=== PATIENT | male | born 1970 | race Caucasian/White ===

== ENCOUNTER 2020-09-27 14:02 | Outpatient (CLI) | payer OTHER, SELFPAY | END 2020-09-27 14:03 | disposition home or self-care (01) | LOC: ANHAUDIO 14:04 | PROVIDERS: PCP Internal Medicine Infectious Disease; Visit Provider Internal Medicine Infectious Disease | DX: H90.3 Sensorineural hearing loss, bilateral (principal) | CPT/HCPCS: 92557; 92567 ==

== ENCOUNTER → 2022-11-01 13:32 | Outpatient (CLI) | payer OTHER, SELFPAY ==
--- NOTE | ~2022-11-01 | MR_ITS ---
EXAMINATION: MR lumbar spine wo con DATE: 11/01/2022 14:21 INDICATION: Low back pain radiating down the left leg. Lumbar radiculopathy. TECHNIQUE: Magnetic resonance imaging (MRI) of the lumbar spine was performed without intravenous con trast. Sequences included sagittal T2-weighted FSE, sagittal T2-weighted FS FSE, sagittal T1-weighted FSE, and axial T2-weighted FSE. COMPARISON: Lumbar spine MRI 05/25/2018 FINDINGS: Bone alignment is normal. Vertebral body heights are normal. Intervertebral disc heights ar e normal. The distal spinal cord signal intensity is normal. The conus medullaris is at L1-L2. The fo llowing disc levels are specifically discussed: L1-L2: The disc does not extend beyond the endplate margin. There is mild bilateral facet joint osteo arthritis. There is no neural foraminal stenosis. There is no central canal stenosis. L2-L3: The disc is bulging and has an annular fissure. There is moderate bilateral facet joint osteoa rthritis. There is mild bilateral neural foraminal stenosis. There is mild central canal stenosis. L3-L4: The disc does not extend beyond the endplate margin. There is moderate bilateral facet joint o steoarthritis. There is no neural foraminal stenosis. There is no central canal stenosis. L4-L5: The disc is bulging and has an annular fissure. There is mild bilateral facet joint osteoarthr itis. There is mild bilateral neural foraminal stenosis. There is mild central canal stenosis. L5-S1: The disc is bulging and has an annular fissure. There is mild bilateral facet joint osteoarthr itis. There is no neural foraminal stenosis. There is mild central canal stenosis. IMPRESSION: 1. Mild lumbar spondylosis, stable from 05/25/2018. Reviewed, dictated and finalized at location A.
== END ==
PROVIDERS: PCP Internal Medicine Infectious Disease; Visit Provider Chiropractor
DX: R20.0 Anesthesia of skin (principal); M47.816 Spondylosis without myelopathy or radiculopathy, lumbar region
CPT/HCPCS: 72148

== ENCOUNTER 2022-12-18 01:54 | Day surgery (SDC) | payer OTHER, SELFPAY ==
[2022-12-07 09:43] VITALS: BMI 25.7
--- NOTE | 2022-12-07 09:47 | PC.NURSE ---
Report to the Outpatient Waiting Room, entrance under the green pavilion located off [facility], at time 0800 on date 12/18/22. Planned Procedure Time: 1000. Time changes happen often and if your time is changed the preop area will call you the afternoon before. - You and your visitor will be asked to self-screen and do not enter if you have any COVID symptoms. - A mask is optional within the hospital at this time. Patients may have clear liquids (water, carbonated beverages, clear teas, apple juice) until 3 hours prior to surgery with a maximum of 20 ounces. - No food from midnight until time of surgery Take the following medications with a SIP of water the morning of surgery: DULOXETINE DO NOT STOP ANY OF YOUR OTHER PRESCRIPTION MEDICATIONS PRIOR TO SURGERY ?EXCEPT THE FOLLOWING Medications to discontinue per physician: N/A Date to take last dose: N/A Please no make-up, nail zimbabwean, hairspray, perfume, deodorant, or body powder the day of surgery. No jewelry (including any body piercings) or valuables the day of surgery, leave them at home. Please take a shower or bath the night before, or the morning of, surgery with an antibacterial soap. Wear comfortable, loose fitting clothing. - Jewelry must be removed prior to entering the operating room. Rings and piercings that are not removed may be cut off. - The hospital will not accept responsibility for valuables. - Please leave all valuables, including medications, at home the day of surgery. If you are going home after surgery, a licensed cab driver must drive you home. - NO public transportation without another adult if you receive anesthesia. - We recommend that an adult stay with you for 24 hours following discharge. - We also recommend that you do not drive, make important decision, drink alcoholic beverages, or take any drugs that were not prescribed by your health care provider for at least 24 hours after your discharge time. Follow any additional instructions given to you from your surgeon. If you or anyone in your household have experienced Covid symptoms in the past week, please notify your surgeon or the nurse liaison at the phone number below for possible testing. Telephone instructions given to PT - SHAHRAM SAHNI and asked if any additional questions and then verbalized understanding. Patient advised to call surgeon office or pre surgery nurse liaison [phone] if any additional questions.
--- NOTE | 2022-12-15 18:45 | WPDANESEPP ---
Anes - Eval Pre Procedure Procedure: Operation Date: 12/18/22 09:30 Proposed Procedures p Bilateral Plantar Fasciotomy with Nerve Ablation - Kings Calderon MD Date/Time: 12/15/22 18:45 Pre Op Diagnosis: bilateral plantar fasciitis/heel pain Patient Data Age: 52 Gender: M Height: 1.88 m Weight: 90.75 kg Allergies Allergy/AdvReac Type Severity Reaction Status Date / Time No Known Allergies Allergy Verified 12/07/22 09:42 Home Medications Medication Instructions Recorded Confirmed Type duloxetine 60 mg capsule,delayed 90 mg PO DAILY 12/07/22 12/07/22 History release Patient hx anesthesia problems: other (slow to wake up) Family hx anesthesia problems: none Results Review: All pre-operative results and documents have been reviewed as part of the pre-operative evaluation. [facility] Past Medical History Medical History (Updated 12/15/22 @ 18:45 by Katie Esparza CRNA) Anxiety Asthma Back pain Bilateral plantar fasciitis Chronic headaches IBS (irritable bowel syndrome) Neuritis of left foot Neuritis of right foot Plantar fasciitis of left foot Plantar fasciitis of right foot Tarsal tunnel syndrome of both lower extremities Tarsal tunnel syndrome of left side Family History Family History Mother Family history of cardiovascular disease Father Family history of malignant neoplasm Malignant neoplasm of prostate Other Hypertension Social History Social History Smoking packs per day: 0.5 Smoking cigarettes per day: 10.0 Years smoked: 15 Smoking pack-years: 7.50 Smoking status: Former smoker Tobacco type: cigarettes Smoking end date: 05/28/00 Alcohol intake: never Substance use: never Substance use type: does not use Living arrangements: with family Occupation/Education: occupation Gender identity (if verbalized by the patient): Male Spiritual care concerns: No Exam Day of Procedure 12/15/22 18:45
[2022-12-18] VITALS (8 sets, daily range): BP systolic 110–134; BP diastolic 68–88; PULSE 73–90; RESP 10–18; TEMP 36.3–36.5; O2SAT 100
--- NOTE | 2022-12-18 07:32 | WPDHPUPDATE1 ---
History and Physical Update Update Date/Time: 12/18/22 07:32 History and Physical has been reviewed, including an updated exam of the patient. There are NO changes in the patient's condition. Risks, benefits, and alternatives have been discussed and questions answered. Patient agrees to proceed with procedure.
[2022-12-18] MEDS: ACETAMINOPHEN 500 MG TABLET 1000 MG PO (08:00)
[2022-12-18] MEDS: LACTATED RINGERS 1,000 ML 30 ML IV CONT (08:10)
--- NOTE | 2022-12-18 08:21 | P.PNAN_ITS ---
Anes - Eval Final PreProcedure Day of Procedure 12/18/22 08:21 Patient weight: normal Heart: regular rate and rhythm Lungs: clear to auscultation Airway: Mallampati scale class II Neurological: alert and oriented Last oral intake: >/= 8 hours ASA classification: II Emergent: no Anesthetic plan: proceed Anesthesia type and monitoring: general LMA and standard monitoring Results Review: All pre-operative results and documents have been reviewed as part of the pre- operative evaluation. Informed Consent: The patient's anesthetic plan and its attendant risks and benefits were discussed with the patient/family/POA. Questions were solicited and answers provided to the satisfaction of the patient/family/POA.
[2022-12-18] MEDS: KETOROLAC 15 MG/ML VIAL (*BKC) IV PUSH (09:15)
[2022-12-18] MEDS: ceFAZolin 2 GM/D5W 50 ML 2 GM/50 ML BAG IVPB (09:31)
[2022-12-18] MEDS: BUPIVACAINE/EPINEPHRINE 0.5% 10 ML VIAL 20 ML INFILTRATE (09:54)
--- NOTE | 2022-12-18 10:11 | W.PM.PROC2 ---
Procedure Note - Detailed Date of Procedure 12/18/22 Pre-op Diagnosis bilateral plantar fasciitis/heel pain Post-op Diagnosis Same Procedure Performed Bilateral plantar fasciotomy Surgeon Kings Calderon MD Anesthesia General Indications 52-year-old with recalcitrant bilateral plantar fasciitis as well as neuritis of the lateral branch of the plantar nerve. Has had multiple injections, therapy and shoe modifications. Presents now for operative treatment. Description of Procedure Patient identified in the preoperative holding. Informed consent given. Operative extremity marked. Patient received intravenous antibiotics. Patient brought to the operating room where underwent general anesthetic by anesthesia team. Positioned supine on operating room table. Time-out performed confirming the patient, site of the surgery and the plan. Both left and right foot prepped and draped usual sterile surgical fashion using a ChloraPrep skin solution. 0.5% Marcaine plain was used as local anesthetic for both the right and left heel. Patient marked the area of maximum intensity of pain on both the right and left heel. Using this as a centering point we made an approximately 4 centimeter sq around this area. This was done both the right and left foot. Addressing the left foot 1st we then used a 0.062 in K-wire to incise the skin in multiple positions for a total of 20 points. The radiofrequency probe was then inserted into each point and a radiofrequency shock was delivered to the area. At each area a release and division of the plantar fascia was performed. Steri-Strips were then applied to the foot. The right foot was then addressed in similar fashion. 0.062 in K-wire used to incise the skin in multiple positions for a total of 20 points. The radiofrequency probe was then inserted into each point and a radiofrequency shock was delivered to the area. Care was taken to perform release at the lateral branch of the plantar nerve both left and right heel. At each area a release and division of the plantar fascia was performed. Steri-Strips were then applied to the foot. Sterile dressing applied. The patient was then woken from anesthesia, extubated and taken to the recovery room in stable condition. All sponge, needle, instrument counts were correct at the end of the case. Estimated Blood Loss 2 Tourniquet Time 15 Drains No Packing No Pathology None sent Complications None Condition Stable Disposition PACU [facility] Billing Surgery - Charge Forward: Surgery Billing ([id number], bilat)
== END 2022-12-18 11:57 | disposition home or self-care (01) ==
PROVIDERS: PCP Internal Medicine Infectious Disease; Visit Provider Orthopaedic Surgery
PROC: (CPT 28899; principal; 2022-12-18 09:30)
DX: M72.2 Plantar fascial fibromatosis (principal); G58.8 Other specified mononeuropathies; F41.9 Anxiety disorder, unspecified; Z87.891 Personal history of nicotine dependence
CPT/HCPCS: 28899; A9270; C1713; J0690; J1100; J1885; J2250; J2405; J2704; J3010; J7120

== ENCOUNTER 2024-01-07 12:31 | Emergency (ER) | payer OTHER, SELFPAY ==
--- NOTE | ~2024-01-07 | CT_ITS ---
CT lumbar spine wo con Ordering provider: Mushtaq Sprague MD History: 53 years Male with . acute on chronic back pain,S/P LIFTING INJURY . Comparison: None. Technique: CT lumbar spine without contrast. Automated exposure control and iterative reconstruction technique were employed. The dose-length product was 675.81 mGy-cm. FINDINGS: VERTEBRAE: Normal height and alignment. No subluxation or visible acute fracture. DISC SPACES: Well maintained. T12-L1: No stenosis. L1-L2: No stenosis. L2-L3: No stenosis. Mild diffuse disc bulge. L3-L4: No stenosis. Mild diffuse disc bulge. L4-L5: No stenosis. Mild diffuse disc bulge. Left paracentral disc protrusion with nerve root compression. The left lateral recess. L5-S1: No stenosis. PARASPINOUS SOFT TISSUES: Normal aorta. Left sacroiliitis. IMPRESSION: Disc protrusion at the level of L5-S1 with nerve root compression in the left lateral recess. Clinica l correlation and if warranted MRI is advised. No acute osseous abnormality. Reviewed, dictated and finalized at location A. IMPRESSION: Disc protrusion at the level of L5-S1 with nerve root compression in the left l ateral recess. Clinical correlation and if warranted MRI is advised. No acute osseous abnormality.
[2024-01-07 12:32] VITALS: BP 124/85; PULSE 82; RESP 18; TEMP 36.3; O2SAT 100
--- NOTE | 2024-01-07 12:33 | ED.GENADULT ---
HPI - General Adult General Chief complaint: Back Pain/Injury Stated complaint: back pain Time Seen by Provider: 01/07/24 12:33 Source: patient Mode of arrival: ambulatory Limitations: no limitations History of Present Illness HPI narrative: 53-year-old white male with history of chronic back pain notice it was bothering him a week ago but got better. This morning woke up without any pain. But then he started lifting some cement bags he started having bilateral low back pain midback pain and so came to the emergency department he did take it for pain today. patient rates his pain as 10/10 when he moves an 8/10 at rest. He said the cement bags earlier lifting were 60 lb. Denies any weakness numbness paresthesias radiation of his pain. Denies any urinary or fecal incontinence or problems voiding or stooling. Pain is worse when he moves better when he lays still. He has had problems since he was 15 years old usually gets his back pain 0 to twice per year. Denies any dizziness lightheadedness cough fever sore throat runny nose nausea vomiting diarrhea rash or itching bleeding or bruising or any other complaints. Related Data Home Medications Medication Instructions Recorded Confirmed duloxetine 60 mg capsule,delayed 90 mg PO DAILY 12/07/22 01/07/24 release Allergies Allergy/AdvReac Type Severity Reaction Status Date / Time No Known Allergies Allergy Verified 01/07/24 12:35 Review of Systems Review of Systems: All systems reviewed & are unremarkable except as noted in HPI and below PMFSH Past Medical History Medical History Anxiety Asthma Back pain Bilateral plantar fasciitis Chronic headaches IBS (irritable bowel syndrome) Lateral epicondylitis of elbow Left elbow pain Neuritis of left foot Neuritis of right foot Plantar fasciitis of left foot Plantar fasciitis of right foot Tarsal tunnel syndrome of both lower extremities Tarsal tunnel syndrome of left side Family History Family History Mother Family history of cardiovascular disease Father Family history of malignant neoplasm Malignant neoplasm of prostate Other Hypertension Social History Social History Smoking packs per day: 0.5 Smoking cigarettes per day: 10.0 Years smoked: 15 Smoking pack-years: 7.50 Smoking status: Former smoker Tobacco type: cigarettes Smoking end date: 05/28/00 Alcohol intake: never Substance use: never Substance use type: does not use Living arrangements: with family Occupation/Education: occupation Gender identity (if verbalized by the patient): Male Spiritual care concerns: No Exam Narrative: White male patient with Moderate apparent distress with movement.? Head normocephalic, atraumatic.? Eyes conjunctiva pink sclera nonicteric.? Extraocular movements are intact.? Ears externally normal.? Oropharynx is clear with moist mucous membranes without exudates.? Neck is supple nontender no lymphadenopathy.? Back paralumbar tenderness. Negative straight leg raise. Deep tendon reflex +2 for lower extremities. Pain with moving on the cart.? Lungs are clear.? Heart is regular rate and rhythm without murmurs gallops or rubs.? Chest wall nontender. Abdomen is soft and nontender no hepatosplenomegaly or masses no CVA tenderness no abdominal bruits.? Extremities no cyanosis clubbing or edema.? Skin is warm and dry without rashes or lesions.? Neurological patient is alert and oriented x4.? Motor and sensory grossly intact. Rectal tone and sensation normal.? Gait is normal. Course Vital Signs Vital signs: Vital Signs Temperature 36.3 C L 01/07/24 12:32 Pulse Rate 82 01/07/24 12:32 Respiratory Rate 18 01/07/24 12:32 Blood Pressure 124/85 01/07/24 12:32 Pulse Oximetry 100 01/07/24 12:32 Oxygen Delivery
[2024-01-07] MEDS: KETOROLAC 30 MG/ML VIAL (*BKC) IM (12:52)
[2024-01-07 13:30] VITALS: BP 112/77; PULSE 70; RESP 16; O2SAT 100
[2024-01-07] MEDS: HYDROmorphone HCL INJ (*CRX) 2 MG/ML VIAL 1 MG IM (13:34)
[2024-01-07 14:30] VITALS: BP 116/74; PULSE 65; RESP 16; O2SAT 97
--- NOTE | 2024-01-07 14:47 | PC.NURSE ---
Patient ambulatory from ED room 1 into hallway. Patient able to ambulate and stand tall at this time. Gait steady.
[2024-01-07 15:00] VITALS: BP 115/72; PULSE 72; RESP 16; O2SAT 99
== END 2024-01-07 15:00 | disposition home or self-care (01) ==
PROVIDERS: Emergency Provider Emergency Medicine
DX: M54.50 Low back pain, unspecified (principal); Z79.899 Other long term (current) drug therapy; Z87.891 Personal history of nicotine dependence
CPT/HCPCS: 72131; 96372; 99284; J1170; J1885

== ENCOUNTER 2024-08-25 00:57 | Day surgery (SDC) | payer OTHER, SELFPAY ==
[2024-08-12 15:56] VITALS: BMI 26.2
--- OUTSIDE RECORDS SUMMARY | 2024-08-25 01:00 | XMS_ITS | Referral Summary ---
Author Organization [facility] Address [address] [place] [address] Care Team Providers Care Fire Engine Operator Name Role Phone Rikki Christina MD Primary Care Provider +1- [phone] Encounters Date Type Department Care Team Description 08/11/2024 Telephone [facility] [address] [place] [address] Rikki Christina MD Hemorrhoids from Last 3 Months Allergies No known active allergies Medications traZODone (DESYREL) 50 mg tabletIndication s:Insomnia, unspecified type Take 1 tablet (50 mg total) by mouth nightly as needed for sleep for sleep 30 tablet [address] (CYMBALTA) 30 mg capsule Take 1 capsule (30 mg total) by mouth daily 90 capsule 1 4 Active naproxen (NAPROSYN) 500 mg tablet Take 1 tablet (500 mg total) by mouth 2 (two) times a day with meals 40 tablet [address] (CYMBALTA) 60 mg capsuleIndicatio ns:Mild episode of recurrent major depressive disorder Take 1 capsule by mouth once daily 30 capsule 2 5 Active menthol-zinc oxide 0.44-20.6 % ointment Apply topically 2 (two) times a day 71 g 5 Active Active Problems Problem Noted Date Diagnosed Date Cyst of bone of right foot 05/14/2024 Assessment & Plan (05/14/2024 9:52 AM DOUGH CUTTER): WILL ARRANGE US OF THE RIGHT FOOT TO BETTER ASSESS Episodic tension-type headache, not intractable 05/14/2024 Assessment & Plan (05/14/2024 9:54 AM DOUGH CUTTER): CHRONIC AND STABLE EYE EXAM ENCOURAGED TRIAL OF NAPROXEN 500 MG PO TIMES ONE Chronic bilateral low back pain without sciatica 01/10/2024 Assessment & Plan (01/14/2024 9:47 PM CDT): Chronic, uncontrolled. Muscular and spinal tenderness on exam with decreased range of motion as noted on exam. Lumbar CT from ER last week was similar when compared with MRI of lumbar spine from 2020. Pain is likely inflammatory in nature. Given IM injection of 80 mg Kenalog in office today, we will prescribe prednisone burst as directed starting tomorrow. We will refill Flexeril as needed. Continue bracing and heat or ice as tolerated. Offered physical therapy consult, patient refused at this time. Advised to call if pain is not improved by next week. Addendum: Patient called 3 days later to state pain had now moved down closer to tailbone and felt d ifferent f rom previous. Discussed with Dr. Christina, we will refer to pain management for further assessment. DDD (degenerative disc disease), lumbar 01/10/20 24 Assessment & Plan (01/14/2024 9:48 PM CDT): Chronic, uncontrolled. See plan for chronic low back pain above Primary insomnia 10/05/2023 Assessment & Plan (04/12/2024 12:17 PM DOUGH CUTTER): DOING WELL ON LY USES PRN TRAZODONE Recurrent major depression 03/27/2022 Assessment & Plan (04/12/2024 12:18 PM DOUGH CUTTER): CHRONIC AND STABLE ON 90 MG OF CYMBALTA Assessment & Plan (10/05/2023 4:02 PM CDT): PT IS DOING WELL DOING CYMBALTA ON 90 MG PO QDAY Mixed hyperlipidemia 03/27/2022 Assessment & Plan (04/12/2024 12:18 PM DOUGH CUTTER): GOAL LDL IS UNDER 100 THERE HAS BEEN AN IMPROVEMENT SINCE THE LAST VISIT Assessment & Plan (10/05/2023 4:02 PM CDT): POOLED COHORT SCORE IS UNDER 7.5 PERCENT CONTINUE DIET AND EXERCISE Immunizations Immunization Administration Dates Next Due Influenza, Unspecified 05/13/2024(Deferr ed: Patient Refused),04/11/2024(Deferred: Patient Refused),03/22/2023(Deferred: Patient Refused),03/19/2023(Deferred: Patient Refused),03/19/2023(Deferred: Patient Refused),03/15/2023(Deferred: Patient Refused) Tdap 04/11/2024 ZOSTER Recombinant 04/06/2023,01/09/2023 Social History Tobacco Use Types Packs/Day Years Used Date Smoking Tobacco: Former Smokeless Tobacco: Never Tobacco Cessation:Counseling Given: Not Answered PHQ-2 Answer Date Recorded PHQ-2 Total Score (If total score is 3 or more points, staff should administer the PHQ-9) 0 04/11/2024 Sex and Gender Information Value Date Recorded Sex Assigned at Not on file Legal Sex Male 7:39 PM DOUGH CUTTER Gender Identity Not on file Sexual Orientation Not on file Last Filed Vital Signs Vital Sign Reading Time Taken Comments Blood Pressure 120/74 05/13/2024 3:20 PM DOUGH CUTTER Pulse 85 05/13/2024 3:20 PM DOUGH CUTTER Temperature 36.4 C (97.5 F) 05/13/2024 3:20 PM DOUGH CUTTER Respiratory Rate 18 05/13/2024 3:20 PM DOUGH CUTTER Oxygen Saturation 97% 05/13/2024 3:20 PM DOUGH CUTTER Inhaled Oxygen Concentration - - Weight 92.8 kg (204 lb 9.6 oz) 05/13/2024 3:20 P M DOUGH CUTTER Height 182.9 cm (6') 05/13/2024 3:20 PM DOUGH CUTTER Body Mass Index 27.75 05/13/2024 3:20 PM DOUGH CUTTER Plan of Treatment Not on file Procedures Procedure Name Priority Date/Time Associated Diagnosis Comments PSA SCREEN Routine 09/29/2023 8:42 AM CDT Routine physical examination Prostate cancer screening STOOL DNA COLOGUARD Routine 06/19/2021 3:15 PM DOUGH CUTTER Screen for colon cancer from Last 3 Months or Most Recently Relevant to Health Maintenance Results * PSA screen (09/29/2023 8:42 AM CDT) PSA 0.99 < OR = 4.00 ng/mL [facility] Comment: The total PSA value from this assay system is standardized against the WHO standard. The test result will be approximately 20% lower when compared to the equimolar-standardized total PSA (Fideilna Ebenezer). Comparison of serial PSA results should be interpreted with this fact in mind. This test was performed using the Siemens chemiluminescent method. Values obtained from different assay methods cannot be used interchangeably. PSA levels, regardless of value, should not be interpreted as absolute evidence of the presence or absence of disease. Blood 09/29/2023 8:42 AM CDT 09/29/2023 8:42 AM CDT Narrative [facility] - 10/01/2023 7:53 AM CDT FASTING:YES FASTING: YES us Rikki Christina MD LAB BLOOD ORDERABLES Final Result [facility] [address] [place] [address] * Stool DNA - Cologuard (06/19/2021 3:15 PM DOUGH CUTTER) Pathologist [facility] Stool DNA - Cologuard Negative Negative [facility] (CLIA #:[id number]) Comment: NEGATIVE TEST RESULT. A negative Cologuard result indicates a low likelihood that a colorectal cancer (CRC) or advanced adenoma (adenomatous polyps with more advanced pre-malignant features) is present. The chance that a person with a negative Cologuard test has a colorectal cancer is less than 1 in 1500 (negative predictive value >99.9%) or has an advanced adenoma is less than 5.3% (negative predictive value 94.7%). These data are based on a prospective cross-sectional study of 10,000 individuals at average risk for colorectal cancer who were screened with both Cologuard and colonoscopy. (Maximo Chavez, N Engl J Med 2014;370(14):3025-4537) The normal value (reference range) for this assay is negative. COLOGUARD RE-SCREENING RECOMMENDATION: Periodic colorectal cancer screening is an important part of preventive healthcare for asymptomatic individuals at average risk for colorectal cancer. Following a negative Cologuard result, the [place] Cancer Society and U.S. Multi-Society Task Force screening guidelines recommend a Cologuard re-screening interval of 3 years. References: [place] [employer] Guideline for Colorectal Cancer Screening: https://www.cancer.org/cancer/zxnqz-hdyrzg-vltuks/hudglbmmb-pjrbwsdyh-gqmoxtk/ac s-rec ommendations.html.; Mateo DK, Walter CR, Rick PérezK, Colorectal Cancer Screening: Recommendations for Physicians and Patients from the U.S. Multi-Society Task Force on Colorectal Cancer Screening , Am J Gastroenterology 2017; 112:7946-8400. TEST DESCRIPTION: Composite algorithmic analysis of stool DNA-biomarkers with hemoglobin immunoassay. Quantitative values of individual biomarkers are not reportable and are not associated with individual biomarker result reference ranges. Cologuard is intended for colorectal cancer screening of adults of either sex, 45 years or older, who are at average-risk for colorectal cancer (CRC). Cologuard has been approved for use by the U.S. FDA. The performance of Cologuard was established in a cross sectional study of average-risk adults aged 50-84. Cologuard performance in patients ages 45 to 49 years was estimated by sub-group analysis of near-age groups. Colonoscopies performed for a positive result may find as the most clinically significant lesion: colorectal cancer [4.0%], advanced adenoma (including sessile serrated polyps greater than or equal to 1cm diameter) [20%] or non- advanced adenoma [31%]; or no colorectal neoplasia [45%]. These estimates are derived from a prospective cross-sectional screening study of 10,000 individuals at average risk for colorectal cancer who were screened with both Cologuard and colonoscopy. (Maximo Chavez, N Engl J Med 2014;370(14):5755-8773.) Cologuard may produce a false negative or false positive result (no colorectal cancer or precancerous polyp present at colonoscopy follow up). A negative Cologuard test result does not guarantee the absence of CRC or advanced adenoma (pre-cancer). The current Cologuard screening interval is every 3 years. ([place] [employer] Society and U.S. Multi-Society Task Force). Cologuard performance data in a 10,000 patient pivotal study using colonoscopy as the reference method can be accessed at the following location: www.[employer].Molecular Detection/results. Additional description of the Cologuard test process, warnings and precautions can be found at www.cologuard.com. Stool 06/19/2021 3:15 PM DOUGH CUTTER 06/21/2021 3:45 PM DOUGH CUTTER Rikki Christina MD LAB BODY FLUIDS AND STOOLS ORDERABLES Final Result [email or web address] (CLIA #:[id number]) [address] [place] [address] from Last 3 Months or Most Recently Relevant to Health Maintenance Insurance [employer] Care Teams Fire Engine Operator Relationship Specialty Start Date End Date Rikki Christina MD [address] [place] [address] PCP - General Internal Medicine 07/07/19
--- OUTSIDE RECORDS SUMMARY | 2024-08-25 01:00 | XMS_ITS | Clinical Summary ---
Author Organization [facility] Address [address] [place] [address] Phone Care Team Providers Care Feed Elevator Worker Name Role Phone Unavailable Primary Care Provider Unavailabl e Social History Tobacco Use Types Packs/Day Years Used Date Smoking Tobacco: Never Assessed Sex and Gender Information Value Date Recorded Sex Assigned at Not on file Legal Sex Male 9:34 AM TECHNICAL SALES ASSOCIATE Gender Identity Not on file Sexual Orientation Not on file Plan of Treatment Health Maintenance Due Date Last Done Comments Hepatitis C Virus (HCV) Screening 1969 TdaP Immunization 1969 Hepatitis B Immunization (1 of 3 - 19+ 3-dose series) 1988 Colonoscopy 2014 Colorectal Cancer Screening 2014 Cologuard 10/24/2019 Immunochemical Fecal Occult Blood 10/24/2019 Pneumococcal Immunization (5 0+ years) (1 of 1 - PCV) 10/24/2019 Zoster Immunization (1 of 2) 10/24/2019 Influenza Immunization (#1) 2024 SARS-COV-2 Immunization (1 - 2023-25 season) 2024 Respiratory Syncytial Virus (RSV) Immunization (Adult) (1 - 1-dose 75+ series) 2044 Meningococcal Immunization (ACWY) Aged Out No longer eligible based on patient's age to complete this topic Pneumococcal Immunization Combined Aged Out No longer eligible based on patient's age to complete this topic Rotavirus Immunization Aged Out No lo nger eligible based on patient's age to complete this topic Insurance [facility]
--- OUTSIDE RECORDS SUMMARY | 2024-08-25 01:00 | XMS_ITS | Encounter Summary ---
Author Organization [facility] Address [address] [place] [address] Phone Care Team Providers Care Vascular Ultrasound Technologist Name Role Phone Rikki Christina MD Primary Care Provider +1- [phone] Encounter Details Date Type Department Care Team (Late st Contact Info) Description 11/01/2022 Orders Only [facility] [address] [place] [address] Scanning, Provider Social History Tobacco Use Types Packs/Day Years Used Date Smoking Tobacco: Former Smokeless Tobacco: Never PHQ-2 Answer Date Recorded PHQ-2 Total Score (If total score is 3 or more points, staff should administer the PHQ-9) 0 09/10/2020 Sex and Gender Information Value Date Recorded Sex Assigned at Not on file Legal Sex Male 7:39 PM CARD PUNCHING MACHINE OPERATOR Gender Identity Not on file Sexual Orientation Not on file documented as of this encounter Plan of Treatment Not on file documented as of this encounter Procedures Procedure Name Priority Date/Time Associated Diagnosis Comments SCAN - RADIOLOGY/IMAGING 11/01/2022 documented in this encounter Results * SCAN - RADIOLOGY/IMAGING (11/01/2022) Anatomical Region Laterality Modality Other us Provider Scanning Final Result documented in this encounter Visit Diagnoses Not on filedocumented in this encounter Care Teams Vascular Ultrasound Technologist Relationship Specialty Start Date End Date Rikki Christina MD [address] [place] [address] PCP - General Internal Medicine 07/07/19 documented as of this encounter
--- OUTSIDE RECORDS SUMMARY | 2024-08-25 01:00 | XMS_ITS | Clinical Summary ---
Author Organization [facility] Address [address] [place] [address] Care Team Providers Care Motor Builder Assembler Name Role Phone Rikki Christina MD Primary Care Provider +1- [phone] Allergies No known active allergies Medications traZODone [...] 05/14/2024 Assessment & Plan (05/14/2024 9:52 AM BRAKE LINING FINISHER ASBESTOS): WILL ARRANGE US OF THE RIGHT FOOT TO BETTER ASSESS Episodic tension-type headache, not intractable 05/14/2024 Assessment & Plan (05/14/2024 9:54 AM BRAKE LINING FINISHER ASBESTOS): CHRONIC AND STABLE EYE EXAM ENCOURAGED TRIAL [...] 10/05/2023 Assessment & Plan (04/12/2024 12:17 PM BRAKE LINING FINISHER ASBESTOS): DOING WELL ON LY USES PRN TRAZODONE Recurrent major depression 03/27/2022 Assessment & Plan (04/12/2024 12:18 PM BRAKE LINING FINISHER ASBESTOS): CHRONIC AND STABLE ON 90 MG OF CYMBALTA Assessment & Plan (10/05/2023 4:02 PM CDT): PT IS DOING WELL DOING CYMBALTA ON 90 MG PO QDAY Mixed hyperlipidemia 03/27/2022 Assessment & Plan (04/12/2024 12:18 PM BRAKE LINING FINISHER ASBESTOS): GOAL LDL IS UNDER 100 THERE HAS BEEN AN IMPROVEMENT SINCE THE LAST VISIT Assessment & Plan (10/05/2023 4:02 PM CDT): POOLED COHORT SCORE IS UNDER 7.5 PERCENT CONTINUE DIET AND EXERCISE Encounters Date Type Department Care Team Description 08/11/2024 Telephone [facility] [address] [place] [address] Rikki Christina MD Hemorrhoids from Last 3 Months Immunizations Immunization Administration Dates Next Due Influenza, [...] on file Legal Sex Male 7:39 PM BRAKE LINING FINISHER ASBESTOS Gender Identity Not on file Sexual Orientation Not on file Obstetrics History Last Filed Vital Signs Vital Sign Reading Time Taken Comments Blood Pressure 120/74 05/13/2024 3:20 PM BRAKE LINING FINISHER ASBESTOS Pulse 85 05/13/2024 3:20 PM BRAKE LINING FINISHER ASBESTOS Temperature 36.4 C (97.5 F) 05/13/2024 3:20 PM BRAKE LINING FINISHER ASBESTOS Respiratory Rate 18 05/13/2024 3:20 PM BRAKE LINING FINISHER ASBESTOS Oxygen Saturation 97% 05/13/2024 3:20 PM BRAKE LINING FINISHER ASBESTOS Inhaled Oxygen Concentration - - Weight 92.8 kg (204 lb 9.6 oz) 05/13/2024 3:20 P M BRAKE LINING FINISHER ASBESTOS Height 182.9 cm (6') 05/13/2024 3:20 PM BRAKE LINING FINISHER ASBESTOS Body Mass Index 27.75 05/13/2024 3:20 PM BRAKE LINING FINISHER ASBESTOS Plan of Treatment Health Maintenance Due Date Last Done Comments Hepatitis C Screening 1969 Hepatitis B Screening 10/24/1987 Regular Well Visit/Exam 18-64 04/06/2024 04/06/2023, 07/07/2019 Colon Cancer Screening-DNA Stool 06/19/2024 06/19/2021 Influenza Vaccine (#1) 2024 Postp oned from 01/27/2024 (Patient declined, but will receive in the future) Depression Screening 04/11/2025 04/11/2024, 04/06/2023, 09/10/2020 Prostate Cancer Screening-PSA 09/28/2025 09/29/2023, 09/30/2022, 09/03/2021, Additional history exists DTaP/Tdap/Td Vaccine (2 - Td or Tdap) 04/11/2034 04/11/2024 Colon Cancer Screening-FIT Discontinued 06/19/2021 Zoster Vaccine Completed 04/06/2023, 01/09/2023 Colon Cancer Screening-Colonoscopy Discontinued Pneumococcal vaccine <65 Aged Out No longer eligible based on patient's age to complete this topic Procedures Procedure Name Priority Date/Time Associated Diagnosis Comments PSA SCREEN Routine 09/29/2023 8:42 AM CDT Routine physical examination Prostate cancer screening STOOL DNA COLOGUARD Routine 06/19/2021 3:15 PM BRAKE LINING FINISHER ASBESTOS Screen for colon cancer from Last 3 Months or Most Recently Relevant to Health Maintenance Results * PSA screen (09/29/2023 8:42 AM CDT) PSA 0.99 < OR = 4.00 ng/mL [facility] Comment: The total PSA value from this assay system is standardized against the WHO standard. The test result will be approximately 20% lower when compared to the equimolar-standardized total PSA (Fidelina Edgartown). Comparison of serial PSA results should be [...] 10/01/2023 7:53 AM CDT FASTING:YES FASTING: YES Rikki Christina MD LAB BLOOD ORDERABLES Final Result [facility] [address] [address] * Stool DNA - Cologuard (06/19/2021 3:15 PM BRAKE LINING FINISHER ASBESTOS) Stool DNA - Cologuard Negative Negative [facility] (CLIA #:[id number]) Comment: NEGATIVE TEST RESULT. A negative Cologuard [...] screened with both Cologuard and colonoscopy. (Maximo Guillen et al, N Engl J Med 2014;370(14):3997-6560) The normal value (reference range) for this assay is negative. COLOGUARD RE-SCREENING RECOMMENDATION: Periodic colorectal cancer screening is an important part of preventive healthcare for asymptomatic individuals at average risk for colorectal cancer. Following a negative Cologuard result, the [place] Cancer Society and U.S. Multi-Society Task Force screening guidelines recommend a Cologuard re-screening interval of 3 years. References: [place] [employer] Society Guideline for Colorectal Cancer Screening: https://www.cancer.org/cancer/lgrer-lyuedq-ypvzoc/wqsysrmdf-sialsists-kxxusma/ac s-rec ommendations.html.; Mateo DK, Walter CR, Rick PérezK, Colorectal Cancer Screening: Recommendations for Physicians and Patients from the U.S. Multi-Society Task Force on Colorectal Cancer Screening , Am J Gastroenterology 2017; 112:9495-6942. TEST DESCRIPTION: Composite algorithmic analysis of stool [...] screened with both Cologuard and colonoscopy. (Maximo Cleveland al, N Engl J Med 2014;370(14):1955-9987.) Cologuard may produce a false negative or false positive result (no colorectal cancer or precancerous polyp present at colonoscopy follow up). A negative Cologuard test result does not guarantee the absence of CRC or advanced adenoma (pre-cancer). The current Cologuard screening interval is every 3 years. ([place] Cancer Society and U.S. Multi-Society Task Force). Cologuard performance data in a 10,000 patient pivotal study using colonoscopy as the reference method can be accessed at the following location: www.[employer]/results. Additional description of the Cologuard test process, warnings and precautions can be found at www.cologuard.com. Stool 06/19/2021 3:15 PM BRAKE LINING FINISHER ASBESTOS 06/21/2021 3:45 PM BRAKE LINING FINISHER ASBESTOS Rikki Christina MD LAB BODY FLUIDS AND STOOLS ORDERABLES Final Result [facility] (CLIA #:[id number]) [address] [place] [place] [address] from Last 3 Months or Most Recently Relevant to Health Maintenance Insurance [facility]/PPO Address: [place] [id number] [facility] [employer] H[facility]/PPO Address: [address] [address] Care Teams Motor Builder Assembler Relationship Specialty Start Date End Date Rikki Christina MD [address] [place] [address] PCP - General Internal Medicine 07/07/19
--- OUTSIDE RECORDS SUMMARY | 2024-08-25 01:00 | XMS_ITS | Clinical Summary ---
Author Organization [facility] Address [address] [place] [address] Care Team Providers Care Heating And Cooling Systems Engineer Name Role Phone Jermaine Valderrama DO Primary Care Provider +1- [phone] Source Comments [facility],non-owned Affiliates and Associated Physician Practices is amultiple site organization consisting of ambulatory clinics and hospital sitesin [place], [place] and [place]. This disclosure is being madepursuant to the Care Everywhere program and may not contain all information available regarding this patient. Last updated 18.[facility] Allergies No known active allergies Medications * Be aware that medications may not be up to date on this document. Alwaysverify current medications with the patient. Medication Sig Dispensed Refills Start Date End Date Status multivitamin daily (THERAGRAN) tablet Take 1 Tab by mouth daily with food. Active Family History Medical History Relation Name Comments Heart Failure Mother Hypercholesterolemia Mother Hypertension Mother Relation Name Status Comments Mother Social History Tobacco Use Types Packs/Day Years Used Date Smoking Tobacco: Former Cigarettes Q uit: 08/01/2000 Smokeless Tobacco: Never Alcohol Use Standard Drinks/Week Comments No 0 (1 standard drink = 0.6 oz pur e alcohol) Sex and Gender Information Value Date Recorded Sex Assigned at Not on file Gender Identity Not on file Sexual Orientation Not on file Last Filed Vital Signs Vital Sign Reading Time Taken Comments Blood Pressure - - Pulse - - Temperature - - Respiratory Rate - - Oxygen Saturation - - Inhaled Oxygen Concentration - - Weight 86.2 kg (190 lb) 03/27/2014 7:23 AM CDT Height 188 cm (6' 2 ) 03/27/2014 7:23 AM CDT Body Mass Index 24.39 03/27/2014 7:23 AM CDT Plan of Treatment Health Maintenance Due Date Last Done Comments COLOGUARD (AGES 45-75) - COL ON CA SCREENING 1969 COLON MONITORING 1969 COLONOSCOPY - COLON CA SCREENING 1969 CT COLONOGRAPHY - COLON CA SCREENING 1969 Colorectal Cancer Screening 1969 FIT - COLON CA SCREENING 1969 FLEX SIG - COLON CA SCREENING 1969 LIPID TESTING 1969 HIV SCREENING 1984 HEPATITIS C SCREENING 10/19/1987 DTAP/TDAP/TD VACCINES (1 - Tdap) 1988 HEPATITIS B VACCINE (1 of 3 - 19+ 3-dose series) 1988 PNEUMOCOCCAL VACCINE 50+ (1 of 1 - PCV) 10/24/2019 ZOSTER VACCINE (1 of 2) 10/24/2019 COVID-19 VACCINE (1 - 2023-2 5 season) 2024 INFLUENZA VACCINE (#1) 2024 DEPRESSION SCREENING 05/28/2024 HIB VACCINE Aged Out No longer eligi ble based on patient's age to complete this topic HPV VACCINE Aged Out No longer eligi ble based on patient's age to complete this topic MENINGOCOCCAL (Group B) VACC INE SHARED DECISION-MAKING Aged Out No longer eligibl e based on patient's age to complete this topic MENINGOCOCCAL GROUPS A/C/Y/W VACCINE Aged Out No longer eligible b ased on patient's age to complete this topic PNEUMOCOCCAL VACCINE Aged Out No long er eligible based on patient's age to complete this topic Care Teams Heating And Cooling Systems Engineer Relationship Specialty Start Date End Date Jermaine Valderrama DO PCP - General Internal Medicine 08/01/13
--- OUTSIDE RECORDS SUMMARY | 2024-08-25 01:00 | XMS_ITS | Continuity of Care Document ---
Author Organization [facility] Address [address] [place] [address] [place] [address] Phone Care Team Providers Care Community Action Worker Name Role Phone Myriam Le Unavailable Unavailable Procedures Procedure Date Eye Exam Established Pt Office/outpatient Visit, Est Eye Exam & Treatment Post-op Follow-up Visit Post-op Follow-up Visit Corneal Topography Corneal Topography Post-op Follow-up Visit Corneal Topography Post-op Follow-up Visit Post-op Follow-up Visit Post-op Follow-up Visit Post-op Follow-up Visit PRK Enhancement Corneal Topography Advance Directives Directive Yes / No Effective Date File Name No Information Encounters Encounter Description Practice Location Reason(s) For Visit Diagnoses Date Provider Providers Copied on Encounter [facility], [address] [place] [address] [address], [place], [place], [id number], [place] tel:[phone] [facility] No Information 0 Mimi Miguel. [address], [place], [address], [place]. tel:[phone] Office/outpat ient Visit, Est [facility], [address] [place] [address] [address], [place], [place], [id number], tel:[phone] [facility] No Information Nov-0 5-200 9 Renteria OD Gordon. [address], [place], [address], [place]. tel:[phone] [facility], [address], [place], [place], [address], [place] tel:[phone] [facility] No Information 4-200 8 Wankum Ignacio. [address] [facility], [address], [place], [place], [address], [place]. tel:[phone] [email or web address], [address], [place], [place], [address], [place] tel:[phone] SEC Erik [address] No Information Oct-0 8-200 7 Nicolas Niles. [address], [address], [place], [place], [address], [place]. tel:[phone] [facility], [address], [place], [place], [address], [place] tel:[phone] [facility] [place] [address] No Information Apr-0 9-200 7 Deering Niles. [address], [address], [place], [place], [address], [place]. tel:[phone] Referring Provider: Gordon Renteria OD A, [address], [place], [address]. tel:[phone] [email or web address], [address], [place], [place], [address], [place] tel:[phone] [facility] [place] [address] No Information Jul-1 9-200 7 Nicolas Niles. [address], [address], [place], [place], [address], [place]. tel:[phone] Referring Provider: Gordon Renteria OD A, [address], [place], [address]. tel:[phone] [facility], [address], [place], [place], [address], [place] tel:[phone] SEC Erik Tinajero No Information Mar-0 6-200 7 Deering Niles. [address], [address], [place], [place], [address], [place]. tel:[phone] Referring Provider: Gordon Renteria OD A, [address], [place], [place], [facility]. tel:[phone] [facility], [address] [place] [address] [address], [place], [place], [address], [place] tel:[phone] [facility] No Information Feb-2 0-200 7 Renteria OD Gordon. [address] , [address], [place], [place], [facility], . tel:[phone] [facility], [address] [place] [address] [address], [place], [place], [address], [place] tel:[phone] [facility] No Information Feb-0 6-200 7 Renteria OD Gordon. [address] , [address], [place], [place], [facility], . tel:[phone] [facility], [address], [place], [place], [address], [place] tel:[phone] [facility] No Information May-3 0-200 7 Renteria OD Gordon. [address] , [address], [place], [place], [facility], [place]. tel:[phone] [facility], [address] [place] [address] [address], [place], [place], [address], [place] tel:[phone] SEC [facility] [place] No Information Yemi-2 6-200 7 Deering Niles. [address], [address], [place], [place], [address], [place]. tel:[phone] Referring Provider: Gordon Aranda, [address], [place], [address]. tel:[phone] [facility], [address] [facility], [place], [place], [address], [place] tel:[phone] SEC [facility] [place] No Information 6-200 6 Nicolsa Cage. [address], [address], [place], [place], [address], [place]. tel:[phone] Referring Provider: Gordon Aranda, [address], [place], [address]. tel:[phone] Family History Family Member Type Diagnosis Age At Onset No Information Payers Payer name Insurance type Covered constitution party ID Authorhussain marion(s) [facility] Out Of State [id number] Social History Type Description Quantity Date Captured Comments Sex Male Smoking Status No Information Chief Complaint And Reason For Visit No Information Reason For Referral Reason For Referral No Information History Of Present Illness Encounter Date Complaint History Of Prese nt Illness No Information Functional Status Date Functional Assessmen t No Information Instructions Date Instruction Additional Infor mation No Information Assessments Type Assessment Date No Information Patient Care Teams Name Effective Dates (start - stop) Status Members No Information
[2024-08-25 09:06] VITALS: BP 108/71; PULSE 73; RESP 20; TEMP 36; O2SAT 100; BMI 25.0
[2024-08-25] MEDS: LACTATED RINGERS 1,000 ML 150 ML IV CONT (09:17)
--- NOTE | 2024-08-25 09:21 | WPDANESEPPF ---
Anes - Initial Pre Proc Eval Procedure: Operation Date: 08/25/24 10:00 Proposed Procedures p Screening Colonoscopy - Campbell Conner MD s [facility] Hemorrhoid Treatment - Campbell Conner MD Date/Time: 08/25/24 09:21 Surgeon: Campbell Conner MD Pre Op Diagnosis: Screening Patient Data Age: 53 Gender: M Height: 1.88 m Weight: 88.6 kg Last Vital Signs Temp 96.8 F L 08/25/24 09:06 Pulse 73 08/25/24 09:06 Resp 20 08/25/24 09:06 BP 108/71 08/25/24 09:06 Pulse Ox 73 L 08/25/24 09:06 O2 Del Method Room Air 08/25/24 09:06 Allergies Allergy/AdvReac Type Severity Reaction Status Date / Time No Known Allergies Allergy Verified 08/25/24 09:05 Home Medications ?Medication ?Instructions ?Recorded ?Confirmed ?Type duloxetine 60 mg capsule,delayed 90 mg PO DAILY 12/07/22 08/25/24 History release cyclobenzaprine 10 mg tablet 10 mg PO TID #14 tabs 01/07/24 08/25/24 Rx Patient hx anesthesia problems: none Family hx anesthesia problems: none Results Review: All pre-operative results and documents have been reviewed as part of the pre-operative evaluation. [facility] Past Medical History Medical History Ganglion cyst of right foot Mass of right foot Lateral epicondylitis of elbow Left elbow pain Back pain Anxiety Neuritis of right foot Neuritis of left foot Plantar fasciitis of left foot Plantar fasciitis of right foot Tarsal tunnel syndrome of left side Tarsal tunnel syndrome of both lower extremities Asthma Chronic headaches Bilateral plantar fasciitis IBS (irritable bowel syndrome) Family History Family History Mother Family history of cardiovascular disease Father Family history of malignant neoplasm Malignant neoplasm of prostate Other Hypertension Social History Social History Smoking packs per day: 0.5 Smoking cigarettes per day: 10.0 Years smoked: 15 Smoking pack-years: 7.50 Smoking status: Former smoker Tobacco type: cigarettes Smoking end date: 05/28/00 Alcohol intake: never Substance use: never Substance use type: does not use Living arrangements: with family Occupation/Education: occupation Gender identity (if verbalized by the patient): Male Spiritual care concerns: No Anes - Eval Final PreProcedure Day of Procedure 08/25/24 09:21 Patient weight: normal Lungs: normal air movement Airway: Mallampati scale class II Neurological: alert and oriented Last oral intake: >/= 8 hours ASA classification: I Emergent: no Anesthetic plan: proceed Anesthesia type and monitoring: general GIVS and standard monitoring Results Review: All pre-operative results and documents have been reviewed as part of the pre-operative evaluation. Informed Consent: The patient's anesthetic plan and its attendant risks and benefits were discussed with the patient/family/POA. Questions were solicited and answers provided to the satisfaction of the patient/family/POA.
--- NOTE | 2024-08-25 09:38 | PM.HPGS ---
History of Present Illness History of Present Illness Consent: Risks, benefits, and alternatives have been discussed and questions answered. Patient agrees to proceed with procedure. Chief complaint: Screening Narrative: Kaushal Price is a 53 year old male here for screening colonoscopy, last one 2007, also hemorrhoids with anal itching for which used topical rx Review of Systems Review of Systems: All systems reviewed & are unremarkable except as noted in HPI and below PMFSH Past Medical History Medical History (Updated 08/25/24 @ 09:40 by Campbell Conner MD) Hemorrhoid Colon cancer screening Ganglion cyst of right foot Mass of right foot Lateral epicondylitis of elbow Left elbow pain Back pain Anxiety Neuritis of right foot Neuritis of left foot Plantar fasciitis of left foot Plantar fasciitis of right foot Tarsal tunnel syndrome of left side Tarsal tunnel syndrome of both lower extremities Asthma Chronic headaches Bilateral plantar fasciitis IBS (irritable bowel syndrome) Family History Family History Mother Family history of cardiovascular disease Father Family history of malignant neoplasm Malignant neoplasm of prostate Other Hypertension Social History Social History Smoking packs per day: 0.5 Smoking cigarettes per day: 10.0 Years smoked: 15 Smoking pack-years: 7.50 Smoking status: Former smoker Tobacco type: cigarettes Smoking end date: 05/28/00 Alcohol intake: never Substance use: never Substance use type: does not use Living arrangements: with family Occupation/Education: occupation Gender identity (if verbalized by the patient): Male Spiritual care concerns: No Meds Home Medications and Allergies Home Medications ?Medication ?Instructions ?Recorded ?Confirmed ?Type duloxetine 60 mg capsule,delayed 90 mg PO DAILY 12/07/22 08/25/24 History release cyclobenzaprine 10 mg tablet 10 mg PO TID #14 tabs 01/07/24 08/25/24 Rx Allergies Allergy/AdvReac Type Severity Reaction Status Date / Time No Known Allergies Allergy Verified 08/25/24 09:05 Vital Signs Vital Signs - 24 hr 08/25/24 09:06 Temperature 96.8 F L Pulse Rate 73 Respiratory Rate 20 Blood Pressure 108/71 Pulse Oximetry 73 L Oxygen Delivery Room Air Exam Const: General: comfortable and no acute distress HENMT: Face/Nose/Sinus: Normal nares present Eyes: General: appearance normal, both eyes and all related structures Neck: Neck: no JVD Resp: Auscultation: clear to auscultation bilaterally Cardio: Rate: regular rate Rhythm: regular rhythm GI: Inspection: non-distended GI Palp: Yes Soft to palpation Skin: General skin exam: normal color Neuro: Speech: normal speech Extrem: General: normal to inspection Psych: Mental Status: mental status grossly normal Assessment and Plan Assessment and plan (1) Colon cancer screening: Code(s): Z12.11 - Encounter for screening for malignant neoplasm of colon Status: Acute Assessment and Plan: colonoscopy (2) Hemorrhoid: Code(s): K64.9 - Unspecified hemorrhoids Status: Acute Assessment and Plan: will assess if internal hemorrhoid and if would need irc
--- NOTE | 2024-08-25 09:55 | W.PM.PROC2 ---
Procedure Note - Detailed Date of Procedure 08/25/24 Pre-op Diagnosis hemorrhoids Post-op Diagnosis Same Procedure Performed irc of internal hemorrhoids Surgeon Campbell Conner MD Anesthesia MAC (also had colonoscopy) Findings small internal hemorrhoids Description of Procedure using anoscope noted small internal hemorrhoids, no fissure, no bleeding. Then advanced IRC probe and hemorrhoids treated for 1.5 seconds x6
[2024-08-25 10:00] VITALS: BP 100/69; PULSE 69; RESP 15; O2SAT 100
[2024-08-25 10:10] VITALS: BP 98/66; PULSE 64; RESP 14; O2SAT 100
[2024-08-25 10:20] VITALS: BP 106/72; PULSE 64; RESP 16; O2SAT 100
== END 2024-08-25 10:24 | disposition home or self-care (01) ==
PROVIDERS: PCP Internal Medicine Infectious Disease; Referring Provider Internal Medicine Infectious Disease; Visit Provider Internal Medicine Gastroenterology
PROC: 0DJD8ZZ Inspection of Lower Intestinal Tract, Via Natural or Artificial Opening Endoscopic (ICD-10-PCS; CPT 45378; principal; 2024-08-25 10:00)
PROC: (CPT 46930; 2024-08-25 10:00)
DX: Z12.11 Encounter for screening for malignant neoplasm of colon (principal); K64.8 Other hemorrhoids; K57.30 Diverticulosis of large intestine without perforation or abscess without bleeding; F41.9 Anxiety disorder, unspecified; J45.909 Unspecified asthma, uncomplicated; R51.9 Headache, unspecified; K58.9 Irritable bowel syndrome, unspecified; M77.10 Lateral epicondylitis, unspecified elbow; G58.8 Other specified mononeuropathies; M72.2 Plantar fascial fibromatosis; G57.53 Tarsal tunnel syndrome, bilateral lower limbs; Z87.891 Personal history of nicotine dependence; Z80.42 Family history of malignant neoplasm of prostate; Z82.49 Family history of ischemic heart disease and other diseases of the circulatory system
CPT/HCPCS: 45378; 46930; J2003; J2704; J7120